=== PATIENT | female | born 1990 | race Caucasian/White ===

== ENCOUNTER 2018-06-04 15:57 | Emergency (ER) | payer OTHER ==
[~2018-06-04] VITALS: Ht 175.3 cm; Wt 74.8 kg
[2018-06-04 16:05] VITALS: BP 125/64
[2018-06-04 18:24] LABS: Basophils # (auto) 0.1 uL; Basophils % (auto) 0.8 % (0.0-2.0); Eosinophils # (auto) 0.2 uL; Eosinophils % (auto) 2.4 % (0.0-7.0); Hematocrit 42.1 % (36.0-46.0); Hemoglobin 14.1 g/dL (12.2-16.2); Lymphocytes # (auto) 1.3 uL; Lymphocytes % (auto) 14.5 % (10.0-50.0); Mean Corpuscular Hemoglobin 30.5 pg (28.0-32.0); Mean Corpuscular Hgb Conc. 33.5 g/dL (32.0-36.0); Monocytes # (auto) 0.5 uL; Monocytes % (auto) 5.4 % (0.0-12.0); Neutrophils # (auto) 6.9 uL; Neutrophils % (auto) 76.9 % (37.0-80.0); Platelet Count (auto) 228 10^3/uL (140-450); Red Blood Cells 4.63 10^6/uL (4.0-5.20); Red Cell Distribution Width 13.5 % (11.8-14.3); White Blood Cell 8.9 10^3/uL (4.4-10.8)
[2018-06-04 19:13] LABS: Urine Bacteria NONE SEEN /hpf (None Seen); Urine Blood Negative /uL (Negative); Urine Specific Gravity 1.003 (1.001-1.035); Urine WBC <1 /hpf (0 - 5)
== END 2018-06-05 01:15 | disposition left against medical advice (07) ==
LOC: ER 15:57
CPT/HCPCS: 36415; 76801; 76817; 81001; 84702; 85025

== ENCOUNTER 2018-06-05 11:05 | Emergency (ER) | payer OTHER ==
[~2018-06-05] VITALS: Ht 175.3 cm; Wt 74.8 kg
[2018-06-05 11:30] VITALS: BP 108/67
[2018-06-05] MEDS ORDERED: ACETAMINOPHEN 650 mg PER 20 mL UD PO ONE (11:30)
== END 2018-06-05 11:28 | disposition home or self-care (01) ==
LOC: ER 11:05